=== PATIENT | male | born 1930 | race Caucasian/White ===

== ENCOUNTER 2016-05-31 18:01 | Day surgery (SDC) | payer MEDICARE ==
[2016-05-31 18:21] VITALS: O2SAT 95
[2016-05-31 19:16] VITALS: BP 102/61; PULSE 64
--- NOTE | 2016-06-01 14:35 | OP ---
SURGERY DATE: 05/31/16 SURGERY TIME: 1719 PREOPERATIVE DIAGNOSIS: 1. FOREIGN BODY ESOPHAGUS. POSTOPERATIVE DIAGNOSIS: 1. SUCCESSFUL DISLODGEMENT. PROCEDURE: 1. EGD with dislodgement of foreign body esophagus. SURGEON: Kunal Car M.D. ANESTHESIA: IV sedation. COMPLICATIONS: None. CONDITION: Stable. INDICATION: Patient has food bolus lodged in the esophagus. He is 85 years old. OPERATIVE PROCEDURE: He was taken to endoscopy. IV sedation titrated. Very meticulous care to laryngeal airway protection. He was kept sideways. The suction was kept immediately there. He was bringing up spit from the get-go. He had 4" of impacted egg taken out sequentially, very carefully and then the last bit pushed into the stomach. Stomach satisfactory. Pylorus satisfactory. Duodenal bulb satisfactory back to the esophagus. Stricture size 28. It was quite irritated today and was not felt safe to dilate today. The esophagus was totally clean. Scope withdrawn. No issues. Findings discussed with the family along with pictures.
== END 2016-05-31 19:15 | disposition home or self-care (01) ==
LOC: SDC 18:01
PROVIDERS: ATTEND Surgery
PROC: 0DC58ZZ Extirpation of Matter from Esophagus, Via Natural or Artificial Opening Endoscopic (ICD-10-PCS; principal; 2016-05-31)
DX: T18.128A Food in esophagus causing other injury, initial encounter (principal)

== ENCOUNTER → 2016-05-31 | Emergency (ER) | payer MEDICARE ==
[~2016-05-31] MED LIST: DEMEROL 50 MG IJ ONE; Sodium Chloride 0.9% 1000 ML 1,000 ML ONE; VERSED 5 MG/5 ML IV ONE; Zofran 4 MG/2 ML VIAL IV ONE; Zofran 4 MG/2 ML VIAL ONE
--- NOTE | 2016-05-31 16:29 | ERPHSYRPT ---
- History of Present Illness Time Seen by Provider: 05/31/16 16:22 Source: patient, family () Physician History: CC: vomiting Hx: 85 y/o male patient of Dr Mckee with remote open heart surgery. He reports vomiting today and having chest pain since the vomiting began. No shortness of breath. No abd pain. No diarrhea. No fever or chills. HE last ate/ drank this AM. No dysphagia or diff swallowing. Does not think he has something stuck. Allergies/Adverse Reactions: No Known Drug Allergies Allergy (Verified 05/31/16 16:44) Home Medications: Aspirin [Aspirin EC] 81 mg PO DAILY 05/31/16 [History] Lisinopril [Zestril] 2.5 mg PO DAILY 05/31/16 [History] Multivitamin W-Minerals/Lutein [Multivit-Mineral Plus 50 Tab] 1 each PO DAILY [History] Simvastatin 0 mg PO HS 05/31/16 [History] Hx Tetanus, Diphtheria Vaccination/Date Given: No Hx Influenza Vaccination/Date Given: No Hx Pneumococcal Vaccination/Date Given: No - Review of Systems Constitutional: No Fever, No Chills Eyes: No Symptoms Ears, Nose, & Throat: No Symptoms Respiratory: No Cough, No Dyspnea Cardiac: Chest Pain Abdominal/Gastrointestinal: Nausea, Vomiting, No Abdominal Pain, No Diarrhea Genitourinary Symptoms: No Dysuria Musculoskeletal: No Back Pain, No Neck Pain Skin: No Rash Neurological: No Headache All Other Systems: Reviewed and Negative - Past Medical History Pertinent Past Medical History: Yes Neurological History: No Pertinent History ENT History: No Pertinent History Cardiac History: Coronary Artery Disease, High Cholesterol, Hypertension Respiratory History: No Pertinent History Endocrine Medical History: No Pertinent History Musculoskeletal History: No Pertinent History GI Medical History: Hernia History: No Pertinent History Psycho-Social History: No Pertinent History Male Reproductive Disorders: No Pertinent History - Past Surgical History Past Surgical History: Yes Neuro Surgical History: No Pertinent History Cardiac: CABG, Cardiac Catheterization, Cardiac Stent Respiratory: No Pertinent History Gastrointestinal: Appendectomy, Hernia Repair Genitourinary: No Pertinent History Musculoskeletal: No Pertinent History Male Surgical History: No Pertinent History - Social History Smoking Status: Former smoker Exposure to second hand smoke: No Drug Use: none Patient Lives Alone: No Significant Family History: heart disease - Nursing Vital Signs Nursing Vital Signs: Initial Vital Signs Temperature 99.0 F Temperature Source Oral Pulse Rate 69 Respiratory Rate 18 Blood Pressure [] 178/87 Pain Intensity 0 - Physical Exam General Appearance: alert Eye Exam: PERRL/EOMI Ears, Nose, Throat Exam: moist mucous membranes Neck Exam: normal inspection, non-tender, supple Respiratory Exam: normal breath sounds, lungs clear Cardiovascular Exam: regular rate/rhythm, other (healed sternotomy scar) Gastrointestinal/Abdomen Exam: soft, No tenderness, No distention Male Genitalia Exam: normal genitalia, No hernia Extremity Exam: normal inspection, normal range of motion Neurologic Exam: alert, oriented x 3 (but forgetful), cooperative, sensation nml , No motor deficits Skin Exam: warm, dry, No rash - Course Nursing assessment & vital signs reviewed: Yes EKG Interpreted by Me: RATE (73), Sinus Rhythm, NORMAL AXIS, NORMAL INTERVALS ( QTc 452), Non-specific ST Changes (LVH basically unchanged from prior) - Radiology Exams cxr X-ray Interpretation: 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, post sternotomy, 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) Ordered Tests: Active Orders 24 hr Category Date Time Status Computer Systems Manager STAT Care 05/31/16 16:22 Active EKG-ER Only STAT Care 05/31/16 16:22 Active IV Insertion STAT Care 05/31/16 16:22 Active Pulse Oximetry (ED) STAT Care 05/31/16 16:22 Active CHEST 1 VIEW (PORTABLE) Stat Exams 05/31/16 16:22 Taken CBC W DIFF Stat Lab 05/31/16 16:30 Completed CMP Stat Lab 05/31/16 16:30 Completed PROTIME WITH INR Stat Lab 05/31/16 16:30 Completed PTT Stat Lab 05/31/16 16:30 Completed TROPONIN Q3H Lab 05/31/16 16:30 Completed TROPONIN Q3H Lab 05/31/16 19:30 Ordered TROPONIN Q3H Lab 05/31/16 22:30 Ordered TROPONIN Q3H Lab 06/01/16 01:30 Ordered TROPONIN Q3H Lab 06/01/16 04:30 Ordered Medication Summary Discontinued Medications Generic Name Dose Route Start Last Admin Trade Name Freq PRN Reason Stop Dose Admin Sodium Chloride Confirm 05/31/16 17:09 Sodium Chloride 0.9% 1000 Ml Administered 05/31/16 17:10 Dose 1,000 mls @ ud .ROUTE .STK-MED ONE Ondansetron HCl 4 mg 05/31/16 16:22 05/31/16 16:31 Zofran 4 Mg/2 Ml Vial IV 05/31/16 16:23 4 mg STAT ONE Administration Ondansetron HCl Confirm 05/31/16 16:31 Zofran 4 Mg/2 Ml Vial Administered 05/31/16 16:32 Dose 4 mg .ROUTE .STK-MED ONE Lab/Rad Data: Laboratory Result Diagrams 05/31/16 16:30 05/31/16 16:30 Laboratory Results 05/31/16 05/31/16 05/31/16 Range/Units 16:30 16:30 16:30 WBC (4.0-10.5) K/mm3 RBC (4.1-5.6) M/mm3 Hgb (12.5-18.0) gm/dl Hct (42-50) % MCV (78-100) fl MCH (26-32) pg MCHC (32-36) g/dl RDW (11.5-14.0) % Plt Count (150-450) K/mm3 MPV (6-9.5) fl Gran % (36.0-66.0) % Lymphocytes % (24.0-44.0) % Monocytes % (0.0-12.0) % Eosinophils % (0.00-5.0) % Basophils % (0.0-0.4) % Basophils # (0-0.4) INR 1.04 (0.8-3.0) PTT 32.4 (24.1-36.1) SECONDS Sodium 142 (136-145) mEq/L Potassium 4.1 (3.5-5.1) mEq/L Chloride 106 (98-107) mEq/L Carbon Dioxide 24.8 (21-32) mEq/L Anion Gap 15.0 (5-15) MEQ/L BUN 27 H (9-20) mg/dL Creatinine 1.54 H (0.55-1.30) mg/dl Estimated GFR 46 ML/MIN Glucose 103 (70-110) MG/DL Calcium 9.5 (8.5-10.1) mg/dL Total Bilirubin 0.4 (0.2-1.0) mg/dL AST 31 (15-37) U/L ALT 22 (12-78) U/L Alkaline Phosphatase 91 (46-116) U/L Troponin I < 0.017 (0.000-0.056) ng/ml Serum Total Protein 8.0 (6.4-8.2) gm/dL Albumin 4.5 (3.4-5.0) g/dL 05/31/16 Range/Units 16:30 WBC 6.0 (4.0-10.5) K/mm3 RBC 4.56 (4.1-5.6) M/mm3 Hgb 14.1 (12.5-18.0) gm/dl Hct 43.8 (42-50) % MCV 96.1 (78-100) fl MCH 30.9 (26-32) pg MCHC 32.2 (32-36) g/dl RDW 14.2 H (11.5-14.0) % Plt Count 155 (150-450) K/mm3 MPV 10.5 H (6-9.5) fl Gran % 61.5 (36.0-66.0) % Lymphocytes % 25.7 (24.0-44.0) % Monocytes % 9.3 (0.0-12.0) % Eosinophils % 3.2 (0.00-5.0) % Basophils % 0.3 (0.0-0.4) % Basophils # 0.02 (0-0.4) INR (0.8-3.0) PTT (24.1-36.1) SECONDS Sodium (136-145) mEq/L Potassium (3.5-5.1) mEq/L Chloride (98-107) mEq/L Carbon Dioxide (21-32) mEq/L Anion Gap (5-15) MEQ/L BUN (9-20) mg/dL Creatinine (0.55-1.30) mg/dl Estimated GFR ML/MIN Glucose (70-110) MG/DL Calcium (8.5-10.1) mg/dL Total Bilirubin (0.2-1.0) mg/dL AST (15-37) U/L ALT (12-78) U/L Alkaline Phosphatase (46-116) U/L Troponin I (0.000-0.056) ng/ml Serum Total Protein (6.4-8.2) gm/dL Albumin (3.4-5.0) g/dL - Progress Progress Note: 05/31/16 16:30 here and reports he has bouts of hiccups and some trouble swallowing. He had that this AM since eating grits and eggs. Has not had recent EGD. He had more of this than usual today and then had chest pain so she brought him to ER. 05/31/16 16:48 reports she gave him sprite but he vomited most of it up. He has clear fluid regurgitating repeatedly and appears to have esophageal obstruction. Called Dr Cody Car who will take to OR for EGD. 05/31/16 17:49 Dr Car took to OR. Esophageal impaction with eggs and grits. He will go to recover. Dr Esha Manning was notified pt was here and going to OR. Counseled pt/family regarding: lab results, diagnosis, need for follow-up, rad results - Departure Time of Disposition: 17:50 Departure Disposition: Observation Clinical Impression: Esophageal obstruction Chest pain Qualifiers: Chest pain type: other chest pain Qualified Code(s): R07.89 - Other chest pain Vomiting Qualifiers: Vomiting type: unspecified Vomiting Intractability: intractable Nausea presence : with nausea Qualified Code(s): R11.2 - Nausea with vomiting, unspecified Condition: Stable Critical Care Time: No Referrals: ELA MCKEE MD [Primary Care Provider] -
[2016-05-31 16:46] VITALS: O2SAT 96
[2016-05-31 16:47] VITALS: BP 178/87; PULSE 69
[2016-05-31 16:47] LABS: BASOPHIL % 0.3 % (0.0-0.4); Eosinophil % 3.2 % (0.00-5.0); Granulocytes % 61.5 % (36.0-66.0); Lymphocytes % 25.7 % (24.0-44.0); Mean Cell Volume 96.1 fl (78-100); Mean Corpuscular Hemoglobin 30.9 pg (26-32); Mean Platelet Volume 10.5 fl (6-9.5); Monocytes % 9.3 % (0.0-12.0); Platelet Count 155 K/mm3 (150-450); Red Blood Count 4.56 M/mm3 (4.1-5.6); Red Cell Distribution Width 14.2 % (11.5-14.0)
[2016-05-31 17:01] LABS: INR 1.04 (0.8-3.0); PROTIME 11.6 SECONDS (8.83-12.87)
[2016-05-31 17:04] LABS: PTT 32.4 SECONDS (24.1-36.1)
[2016-05-31 17:10] LABS: ALBUMIN 4.5 g/dL (3.4-5.0); BILIRUBIN,TOTAL 0.4 mg/dL (0.2-1.0); Carbon Dioxide 24.8 mEq/L (21-32); Potassium 4.1 mEq/L (3.5-5.1)
--- NOTE | 2016-05-31 22:44 | XRAY ---
Indication: Chest pain. Comparison: October 05, 2015. Portable chest again hyperinflated with flattened hemidiaphragms, bibasilar fibrosis/scarring, and left base calcified pleural plaquing. Remaining lungs clear. Heart is not enlarged and again demonstrates previous CABG surgery. CT proven hiatal hernia. Bony thorax intact again with mild osteopenia and degenerative changes. Impression: Nonacute chest again with chronic features.
== END ==
LOC: ED 16:05
DX: R07.89 Other chest pain (principal); R11.2 Nausea with vomiting, unspecified; K22.2 Esophageal obstruction; I25.10 Atherosclerotic heart disease of native coronary artery without angina pectoris; E78.00 Pure hypercholesterolemia, unspecified; I10 Essential (primary) hypertension; Z79.899 Other long term (current) drug therapy; Z95.1 Presence of aortocoronary bypass graft; Z98.61 Coronary angioplasty status
CPT/HCPCS: 36000; 36415; 71010; 80053; 84484; 85025; 85610; 85730; 93005; 93041; 96374; 99285; J2175; J2250; J2405

== ENCOUNTER 2017-07-11 14:17 | Observation (INO) | payer MEDICARE ==
[2017-07-11] MEDS ORDERED: Sodium Chloride 0.9% 1000 ML 1,000 ML IV SCH (15:00)
--- NOTE | 2017-07-11 15:32 | XRAY ---
Indication: Short of breath. Dehydration. Comparison: May 31, 2016. Portable chest unchanged again hyperinflated with bibasilar fibrosis/scarring, and left lung calcified pleural plaquing. Heart is not enlarged again demonstrating CABG surgery. Vascularity normal. Bony thorax intact again with osteopenia and degenerative changes. No new/acute findings. Impression: Stable nonacute chest with chronic features.
[2017-07-11 15:40] LABS: Hemoglobin 11.7 gm/dl (12.5-18.0); Mean Corpuscular Hemoglobin 30.5 pg (26-32); Mean Corpuscular Hgb Concent. 32.5 g/dl (32-36); Mean Platelet Volume 10.5 fl (6-9.5); Platelet Count 120 K/mm3 (150-450); Red Blood Count 3.83 M/mm3 (4.1-5.6); Red Cell Distribution Width 14.9 % (11.5-14.0)
[2017-07-11 15:56] LABS: ALKALINE PHOSPHATASE 72 U/L (38-126); ANION GAP 12.4 MEQ/L (5-15); BLOOD UREA NITROGEN 34 mg/dL (9-20); CHLORIDE 100 mmol/L (98-107); Calcium 9.4 mg/dL (8.4-10.2); Carbon Dioxide 27 mmol/L (22-30); Creatinine 1 1.77 mg/dL (0.66-1.25); Glucose 127 mg/dL (74-106); Potassium 4.5 mmol/L (3.5-5.1); SGOT/AST 23 U/L (17-59); SGPT/ALT 12 U/L (0-50); SODIUM 134 mmol/L (137-145); Total Protein 7.1 g/dL (6.3-8.2)
[2017-07-11 16:08] LABS: TROPONIN < 0.012 ng/mL (0.000-0.034)
[2017-07-11] MEDS: Sodium Chloride 0.9% 1000 ML 1,000 ML IV SCH (17:09)
[2017-07-11 18:23] LABS: Appearance CLEAR (CLEAR); Bilirubin NEGATIVE (NEGATIVE); Blood 50 Ery/ul (0-5); Glucose NEGATIVE (NEGATIVE); Ketones NEGATIVE (NEGATIVE); Leukocyte Esterase NEGATIVE (NEGATIVE); Nitrite NEGATIVE (NEGATIVE); Protein,Urine Dip 30 (Negative); Specific Gravity 1.015 (1.005-1.025); Urobilinogen NORMAL mg/dL (0-1)
[2017-07-11 18:24] LABS: Bacteria RARE /HPF (NEGATIVE); Epithelial Cells RARE /HPF (FEW); WBC 0-2 /HPF (0-5)
--- NOTE | 2017-07-11 19:41 | PCM.HP ---
History of Present Illness - Chief Complaint Chief Complaint: dehydration, SOB for 2-3 days History of Present Illness: is a 86 year old male.Admitted from my office after having 3 days history of fever, chills, shortness of breath and poor fluid intake. According to the . Patient is extremely weak and not able to get out of the bed or chair. - Review of Systems Constitutional: Fever, Chills, Fatigue, Lethargy, Malaise, Weakness Eyes: No Symptoms Ears, Nose, & Throat: No Symptoms Respiratory: Cough, Short Of Breath Cardiac: Orthopnea, PND, No Chest Pain, No Edema, No Syncope Abdominal/Gastrointestinal: No Abdominal Pain, No Nausea, No Vomiting, No Diarrhea Genitourinary Symptoms: No Dysuria Musculoskeletal: No Back Pain, No Neck Pain Skin: No Rash Neurological: No Dizziness, No Focal Weakness, No Sensory Changes Psychological: No Symptoms Endocrine: No Symptoms Hematologic/Lymphatic: No Symptoms Immunological/Allergic: No Symptoms Medications & Allergies Home Medications: Home Medication List Aspirin [Aspirin EC] 81 mg PO DAILY 05/31/16 [History Confirmed 07/11/17] Lisinopril [Zestril] 2.5 mg PO DAILY 05/31/16 [History Confirmed 07/11/17] Allergies/Adverse Reactions: Allergies Allergy/AdvReac Type Severity Reaction Status Date / Time No Known Drug Allergies Allergy Verified 05/31/16 16:44 - Past Medical History Past Medical History: Yes Neurological History: No Pertinent History ENT History: No Pertinent History Cardiac History: Coronary Artery Disease, High Cholesterol, Hypertension Respiratory History: No Pertinent History Endocrine Medical History: No Pertinent History Musculoskelatal History: No Pertinent History GI Medical History: Hernia History: No Pertinent History Pyscho-Social History: No Pertinent History Male Reproductive Disorders: No Pertinent History - Past Surgical History Past Surgical History: Yes Neuro Surgical History: No Pertinent History Cardiac History: CABG, Cardiac Catheterization, Cardiac Stent Respiratory Surgery: No Pertinent History GI Surgical History: Appendectomy, Hernia Repair Genitourinary Surgical Hx: No Pertinent History Musculskeletal Surgical Hx: No Pertinent History Male Surgical History: No Pertinent History Other Surgical History: open heart in 2007, - Social History Smoking Status: Former smoker Exposure to second hand smoke: No Alcohol: None Drug Use: none Significant Family History: heart disease - Physical Exam Vital Signs: Vital Signs - 24 hr Temp Pulse Resp BP Pulse Ox 04/20/18 15:52 98.3 F 81 20 131/60 91 L 07/11/17 14:34 98.3 F 81 20 131/60 91 L General Appearance: moderate distress, lethargy Neurologic Exam: alert, oriented x 3, cooperative, normal mood/affect, nml cerebellar function, nml station & gait, sensation nml, No motor deficits Eye Exam: PERRL/EOMI, eyes nml inspection Ears, Nose, Throat Exam: normal ENT inspection, TMs normal, pharynx normal, moist mucous membranes Neck Exam: normal inspection, non-tender, supple, full range of motion Respiratory Exam: normal breath sounds, lungs clear, No respiratory distress Cardiovascular Exam: regular rate/rhythm, normal heart sounds, normal peripheral pulses Gastrointestinal/Abdomen Exam: soft, normal bowel sounds, No tenderness, No mass Back Exam: normal inspection, normal range of motion, No CVA tenderness, No vertebral tenderness Extremity Exam: normal inspection, normal range of motion, pelvis stable Skin Exam: normal color, warm, dry, No rash Lymphatic Exam: No adenopathy Results - Labs Lab/Micro Results: Lab Results-Last 24 Hours 07/11/17 07/11/17 07/11/17 Range/Units 15:20 15:20 Unknown WBC 7.0 (4.0-10.5) K/mm3 RBC 3.83 L (4.1-5.6) M/mm3 Hgb 11.7 L (12.5-18.0) gm/dl Hct 36.0 L (42-50) % MCV 94.0 (78-100) fl MCH 30.5 (26-32) pg MCHC 32.5 (32-36) g/dl RDW 14.9 H (11.5-14.0) % Plt Count 120 L (150-450) K/mm3 MPV 10.5 H (6-9.5) fl Sodium 134 L (137-145) mmol/L Potassium 4.5 (3.5-5.1) mmol/L Chloride 100 (98-107) mmol/L Carbon Dioxide 27 (22-30) mmol/L Anion Gap 12.4 (5-15) MEQ/L BUN 34 H (9-20) mg/dL Creatinine 1.77 H (0.66-1.25) mg/dL Estimated GFR 38.8 ML/MIN Glucose 127 H (74-106) mg/dL Calcium 9.4 (8.4-10.2) mg/dL Total Bilirubin 0.40 (0.2-1.3) mg/dL AST 23 (17-59) U/L ALT 12 (0-50) U/L Alkaline Phosphatase 72 (38-126) U/L Troponin I < 0.012 (0.000-0.034) ng/mL Serum Total Protein 7.1 (6.3-8.2) g/dL Albumin 4.0 (3.5-5.0) g/dL Ur Collection Type CCMS Urine Color YELLOW (YELLOW) Urine Appearance CLEAR (CLEAR) Urine pH 6.0 (5-6) Ur Specific [place] 1.015 (1.005-1.025) Urine Protein 30 (Negative) Urine Ketones NEGATIVE (NEGATIVE) Urine Blood 50 (0-5) Bryce/ul Urine Nitrite NEGATIVE (NEGATIVE) Urine Bilirubin NEGATIVE (NEGATIVE) Urine Urobilinogen NORMAL (0-1) mg/dL Ur Leukocyte Esterase NEGATIVE (NEGATIVE) Urine Microscopic RBC 5-10 (0-2) /HPF Urine Microscopic WBC 0-2 (0-5) /HPF Ur Epithelial Cells RARE (FEW) /HPF Urine Bacteria RARE (NEGATIVE) /HPF Urine Glucose NEGATIVE (NEGATIVE) mg/dL Specimen Received 07-11-17 1820 - Radiology Impressions Radiology Exams & Impressions: Radiology Procedures Category Date Time Status CHEST 1 VIEW (PORTABLE) Routine Exams 07/11/17 15:00 Completed Assessment/Plan (1) Shortness of breath Current Visit: Yes Status: Acute Assessment & Plan: Chief Complaint Diagnosis dehydration, SOB Allergies Allergy/AdvReac Type Severity Reaction Status Date / Time No Known Drug Allergies Allergy Verified 05/31/16 16:44 Vital Signs (Last 24 hours) Temp Pulse Resp BP Pulse Ox 07/11/17 15:52 98.3 F 81 20 131/60 91 L 07/11/17 14:34 98.3 F 81 20 131/60 91 L Current Medications Generic Name Dose Route Start Last Admin Trade Name Freq PRN Reason Stop Dose Admin Sodium Chloride 1,000 mls @ 100 mls/hr 07/11/17 16:00 07/11/17 17:09 Sodium Chloride 0.9% 1000 Ml IV 08/10/17 15:59 100 mls/hr .Q10H JAGJIT Administration Discontinued Medications Generic Name Dose Route Start Last Admin Trade Name Shane PRN Reason Stop Dose Admin Sodium Chloride 1,000 mls @ 999 mls/hr 07/11/17 15:00 07/11/17 15:45 Sodium Chloride 0.9% 1000 Ml IV 07/11/17 16:00 999 mls/hr .Q1H1M JAGJIT Administration Intake & Output (Last 24 hours) 07/09/17 07/10/17 07/11/17 07/12/17 11:59 11:59 11:59 11:59 Intake Total 120 Balance 120 Weight 63.2 kg Microbiology Results (Last 24 hours) 07/11/17 17:15 Urine, Void Urine Culture - Pending Laboratory Results (Last 24 hours) 07/11/17 07/11/17 07/11/17 Unknown 15:20 15:20 WBC 7.0 RBC 3.83 L Hgb 11.7 L Hct 36.0 L MCV 94.0 MCH 30.5 MCHC 32.5 RDW 14.9 H Plt Count 120 L MPV 10.5 H Sodium 134 L Potassium 4.5 Chloride 100 Carbon Dioxide 27 Anion Gap 12.4 BUN 34 H Creatinine 1.77 H Estimated GFR 38.8 Glucose 127 H Calcium 9.4 Total Bilirubin 0.40 AST 23 ALT 12 Alkaline Phosphatase 72 Troponin I < 0.012 Serum Total Protein 7.1 Albumin 4.0 Ur Collection Type CCMS Urine Color YELLOW Urine Appearance CLEAR Urine pH 6.0 Ur Specific [place] 1.015 Urine Protein 30 Urine Ketones NEGATIVE Urine Blood 50 Urine Nitrite NEGATIVE Urine Bilirubin NEGATIVE Urine Urobilinogen NORMAL Ur Leukocyte Esterase NEGATIVE Urine Microscopic RBC 5-10 Urine Microscopic WBC 0-2 Ur Epithelial Cells RARE Urine Bacteria RARE Urine Glucose NEGATIVE Specimen Received 07-11-17 1820 Orders (Last 24 hours) Category Date Time Status Place in Observation ROUTINE Care 07/11/17 14:17 Active Nutritional Admission Screen once Diet 07/11/17 16:16 Active Regular Diet Diet 07/11/17 Dinner Active CHEST 1 VIEW (PORTABLE) Routine Exams 07/11/17 15:00 Completed CBC Urgent Lab 07/11/17 15:20 Completed CMP Urgent Lab 07/11/17 15:20 Completed CULTURE,URINE Urgent Lab 07/11/17 17:15 Ordered TROPONIN Urgent Lab 07/11/17 15:20 Completed UA W/ MICROSCOPIC Urgent Lab 07/11/17 Completed NaCl 0.9% 1000 ml [Sodium Chloride 0.9% 1000 ML] 1,000 Med 07/11/17 16:00 Active ml IV 100 mls/hr NaCl 0.9% 1000 ml [Sodium Chloride 0.9% 1000 ML] 1,000 Med 07/11/17 15:00 Discontinued ml IV 999 mls/hr EKG ROUTINE RT 07/11/17 15:00 Completed Patient Care Notes (Last 24 hours) 07/11/17 16:30 Nursing Note by Sara Suárez pt admitted from home/direct admit. reports pt has been very weak X3 days with poor appetite. denies NVD. states pt has had the chills, temp 101 at home 2 days ago. shivering terrible and talking "out of his head". Pt answering questions appropriately, confused to time. denies pain or disc. during assessment pt asking about the laundry mat, talking about the wheels, and not making sense in conversation at times. skin warm and dry. reports pt ate a good breakfast this am, has not been sleeping well, sleeping frequently. Initialized on 07/11/17 16:30 - END OF NOTE Code(s): R06.02 - SHORTNESS OF BREATH (2) Dehydration Current Visit: Yes Status: Acute Code(s): E86.0 - DEHYDRATION
[2017-07-12] MEDS: Sodium Chloride 0.9% 1000 ML 1,000 ML IV SCH (06:22)
[2017-07-12 07:23] VITALS: BP 107/56; PULSE 60; O2SAT 92
--- NOTE | 2017-07-12 07:53 | PCM.DCORD ---
- Discharge Discharge Date: 07/12/17 Disposition: Home, Self-Care Condition: Stable Prescriptions: New Cephalexin [Keflex] 500 mg PO QID 7 Days #28 capsule Continue Lisinopril [Zestril] 2.5 mg PO DAILY Aspirin [Aspirin EC] 81 mg PO DAILY Follow up with: ELA MCKEE MD [Primary Care Provider] - 1 Week
== END 2017-07-12 09:40 | disposition home or self-care (01) ==
LOC: MED SURG 14:17
PROVIDERS: ADMIT General Practice; ATTEND General Practice
DX: E86.0 Dehydration (principal); I10 Essential (primary) hypertension; I25.10 Atherosclerotic heart disease of native coronary artery without angina pectoris; I25.810 Atherosclerosis of coronary artery bypass graft(s) without angina pectoris; Z87.891 Personal history of nicotine dependence; Z79.899 Other long term (current) drug therapy
CPT/HCPCS: 36415; 71045; 80053; 81000; 84484; 85027; 87086; 93005; G0378

== ENCOUNTER 2018-06-30 21:22 | Emergency (ER) | payer MEDICARE, SELFPAY ==
[2018-06-30 21:39] VITALS: O2SAT 98
--- NOTE | 2018-06-30 21:56 | ERPHSYRPT ---
- History of Present Illness Time Seen by Provider: 06/30/18 21:45 Source: patient Exam Limitations: clinical condition Patient Subjective Stated Complaint: STATES PT WALKED IN FRONT OF HER WHILE SHE WAS USING A MESSENGER COPY CAUSING LACERATION OF LEFT POSTERIOR HAND. "HE TAKES AN ASPIRIN EVERYDAY SO HE WAS BLEEDING EVERYWHERE" Triage Nursing Assessment: pink/warm/dry, resp easy, a&ox4, steady gait to room. lac to left posterior hand noted with no active bleeding. Physician History: PATIENT WITH A HISTORY OF CORONARY ARTERY DISEASE, HYPERTENSION AND CONGESTIVE HEART FAILURE WALKED IN FRONT OF HIS WHILE SHE WAS USING A SPRAY WASHER AND SUSTAINED LACERATION TO THE BACK OF HIS LEFT HAND. HE DENIES PAIN, NUMBNESS , TINGLING OR WEAKNESS IN FINGERS. Occurred: just prior to arrival Method of Injury: incised (FROM [employer]) Quality: other (DENIES PAIN) Severity of Pain-Max: none Severity of Pain-Current: none Extremities Pain Location: hand: left Modifying Factors: Improves With: nothing Associated Symptoms: none Allergies/Adverse Reactions: No Known Drug Allergies Allergy (Verified 05/31/16 16:44) Home Medications: Aspirin [Aspirin EC] 81 mg PO DAILY 05/31/16 [History] Lisinopril [Zestril] 2.5 mg PO DAILY 05/31/16 [History] Hx Tetanus, Diphtheria Vaccination/Date Given: Yes Hx Influenza Vaccination/Date Given: Yes Hx Pneumococcal Vaccination/Date Given: Yes Immunizations Up to Date: Yes - Review of Systems Constitutional: No Fever, No Chills Eyes: No Symptoms Ears, Nose, & Throat: No Symptoms Respiratory: No Symptoms, No Cough, No Dyspnea Cardiac: No Chest Pain, No Edema, No Syncope Abdominal/Gastrointestinal: No Abdominal Pain, No Nausea, No Vomiting, No Diarrhea Genitourinary Symptoms: No Dysuria Musculoskeletal: Injury, Other (LACERATION), No Back Pain, No Neck Pain Skin: No Rash Neurological: No Dizziness, No Focal Weakness, No Sensory Changes Psychological: No Symptoms Endocrine: No Symptoms All Other Systems: Reviewed and Negative - Past Medical History Pertinent Past Medical History: Yes Neurological History: No Pertinent History ENT History: No Pertinent History Cardiac History: Coronary Artery Disease, High Cholesterol, Hypertension Respiratory History: No Pertinent History Endocrine Medical History: No Pertinent History Musculoskeletal History: No Pertinent History GI Medical History: Hernia History: No Pertinent History Psycho-Social History: No Pertinent History Male Reproductive Disorders: No Pertinent History - Past Surgical History Past Surgical History: Yes Neuro Surgical History: No Pertinent History Cardiac: CABG, Cardiac Catheterization, Cardiac Stent Respiratory: No Pertinent History Gastrointestinal: Appendectomy, Hernia Repair Genitourinary: No Pertinent History Musculoskeletal: No Pertinent History Male Surgical History: No Pertinent History Other Surgical History: open heart in 2007, - Social History Smoking Status: Former smoker Exposure to second hand smoke: No Drug Use: none Patient Lives Alone: No Significant Family History: heart disease - Nursing Vital Signs Nursing Vital Signs: Initial Vital Signs Temperature 97.3 F 06/30/18 21:30 Pulse Rate 77 06/30/18 21:30 Respiratory Rate 16 06/30/18 21:30 Blood Pressure 119/64 06/30/18 21:30 O2 Sat by Pulse Oximetry 98 06/30/18 21:30 Pain Scale Pain Intensity 0 - Physical Exam General Appearance: no apparent distress Hand Exam: laceration (3CM C-SHAPED LACERATION MID 2ND TO 3RD LEFT METACARPALS, NO SWELLING OR ECCHYMOSIS, FULL RANGE OF MOTION ALL DIGITS) DTR - Upper Extremity Exam: bicep (R): 2+, bicep (L): 2+, tricep (R): 2+, tricep (L): 2+ Mental Status Exam: alert, oriented x 3 Skin Exam: normal color SpO2 Interpretation: normal SpO2: 98 Procedures - Laceration/Wound Repair Left Hand Wound Location: Left, hand Wound Length (cm): 3 Wound's Depth, Shape: irregular Wound Explored: clean Irrigated: Yes Hibiclens Prep: Yes Anesthesia: local, 2% Lidocaine Volume Anesthetic (ccs): 4 Wound Repaired With: sutures Suture Size/Type: 4-0, chromic gut Number of Sutures: 6 Layer Closure?: No Sterile Dressing Applied?: Yes - Radiology Exams Left Hand X-ray Interpretation: Interpreted by me, Negative, No Fracture (OSTEOPOROSIS) Ordered Tests: Active Orders 24 hr Category Date Time Status HAND (MINIMUM 3 VIEWS) Stat Exams 06/30/18 21:47 Taken Medication Summary Discontinued Medications Generic Name Dose Route Start Last Admin Trade Name Freq PRN Reason Stop Dose Admin Diphtheria/Tetanus/Acell Pertussis 0.5 ml 06/30/18 22:01 06/30/18 22:33 Adacel Vial IM 06/30/18 22:02 0.5 ml .ONCE ONE Administration Diphtheria/Tetanus/Acell Pertussis Confirm 06/30/18 22:28 Adacel Vial Administered 06/30/18 22:29 Dose 0.5 ml IM .STK-MED ONE - Progress Counseled pt/family regarding: diagnosis, need for follow-up, rad results - Departure Departure Disposition: Home Clinical Impression: LACERATION LEFT HAND Condition: Stable Critical Care Time: No Referrals: ELA MCKEE MD [Primary Care Provider] - Additional Instructions: CLEANSE WITH SOAP AND WATER 2-3 TIMES DAILY. ANTIBIOTIC KEFLEX 500MG EVERY 8 HOURS FOR 10 DAYS. HAVE STITCHES REMOVED AT 10 DAYS. WATCH FOR SIGNS OF INFECTION, REDNESS, SWELLING OR DRAINAGE. Prescriptions: Cephalexin Mh 500 mg [Keflex 500 mg] 500 mg PO TID #30 capsule
[2018-06-30] MEDS ORDERED: Adacel Vial IM ONE (22:28)
[2018-06-30] MEDS: Adacel Vial IM ONE (22:33)
[2018-06-30 23:09] VITALS: BP 117/61; PULSE 66
[2018-06-30] MEDS ORDERED: KEFLEX 500 MG ONE (23:13)
[2018-06-30] MEDS: KEFLEX 500 MG PO ONE (23:16)
--- NOTE | 2018-07-01 08:43 | XRAY ---
Indication: 4th/5th metacarpal laceration. Comparison: None 3 views of the left hand demonstrates osteopenia, mild/moderate degenerative changes of all IP joints, advanced 1st metacarpal multangular degenerative changes, distal radial ulnar degenerative changes, widened scapholunate articulation probable underlying ligament tear, tiny proximal 2nd phalanx foreign body, and distal forearm vascular calcifications. No other bony, articular, or soft tissue abnormalities.
== END 2018-06-30 23:20 | disposition home or self-care (01) ==
LOC: ED 21:22
DX: S61.412A Laceration without foreign body of left hand, initial encounter (principal); W22.8XXA Striking against or struck by other objects, initial encounter; Y93.89 Activity, other specified; I25.10 Atherosclerotic heart disease of native coronary artery without angina pectoris; E78.00 Pure hypercholesterolemia, unspecified; I10 Essential (primary) hypertension; I50.9 Heart failure, unspecified
CPT/HCPCS: 12002; 73130; 90471; 90715; 99284; A9270-GY